=== PATIENT | male | born 1965 | race Caucasian/White ===

== ENCOUNTER 2019-10-25 19:25 | Emergency (ER) | payer OTHER ==
[2019-10-25 19:48] VITALS: BMI 20.9
[2019-10-25] MEDS ORDERED: methylPREDNISolone NA SUCC 125 MG/2 ML VIAL IVPB ONE (20:01)
[2019-10-25] MEDS ORDERED: SODIUM CHLORIDE 1,000 ML IV STA (20:01)
[2019-10-25] MEDS ORDERED: methylPREDNISolone NA SUCC 125 MG/2 ML VIAL ONE (20:13)
[2019-10-25] MEDS ORDERED: CEFTRIAXONE 2,000 MG in DEXTROSE 5%-WATER - 50 ML IVPB ONE (20:42)
[2019-10-25] MEDS ORDERED: CLINDAMYCIN 600MG PREMIX IVPB 600 MG/50 ML BAG IVPB ONE (20:44)
[2019-10-25 20:46] LABS: ALBUMIN 4.4 g/dl (3.4-5.0); BILIRUBIN,TOTAL 1.3 mg/dl (0.2-1); CALCIUM 9.1 mg/dl (8.5-10); CREATININE 0.9 mg/dl (0.55-1.3); POTASSIUM 4.3 mmol/L (3.5-5.1); TOT PROT 7.9 g/dl (6.4-8.2)
[2019-10-25 20:47] LABS: HEMATOCRIT 41.3 % (35.4-49); HEMOGLOBIN 14.7 GM/dl (11.7-16.9); MCHC 35.5 g/dl (32.0-35.9); MEAN CELL VOLUME 87.1 fl (80-96); MEAN PLT VOLUME 7.7 fl (7.5-11.1); PLATELET COUNT 263 K/MM3 (134-434); RBC 4.74 M/mm3 (4.00-5.60)
[2019-10-25] MEDS ORDERED: CLINDAMYCIN PHOSPHATE 600 MG/4 ML VIAL ONE (20:54)
[2019-10-25 21:25] VITALS: TEMP 99.8
[2019-10-25 21:59] LABS: PLATELET ESTIMATE ADEQUATE
[2019-10-25 22:01] VITALS: BP 140/100; PULSE 109
--- NOTE | 2019-10-26 00:05 | PDOC ---
Documentation entered by Carrillo Paris SCRIBE, acting as scribe for Mayra Vogel MD. Mayra Vogel MD: This documentation has been prepared by the Wellington harding Angel, SCRIBE, under my direction and personally reviewed by me in its entirety. I confirm that the documentation accurately reflects all work, treatment, procedures, and medical decision making performed by me. History of Present Illness - General Chief Complaint: Dysphagia Stated Complaint: SWALLOWING DIFFICULTY Time Seen by Provider: 10/25/19 19:51 History Source: Patient, Significant Other - History of Present Illness Initial Comments: 10/25/19 20:24 The patient is a 54 year old male with a significant past medical history of HTN who presents to the ED with throat swelling for 3 days. The patient states he was cleaning around the house on Friday when he started to feel his throat getting tight. The patient states he also began experiencing right ear pain that same day but it resolved. The patient states the throat tightness has been progressively getting worse over the last few days, now he has trouble swallowing water or any foods and states it feels like there is something stuck and he cant cough it up. The patients notes taking the patient to Urgent Care but nothing they found was remarkable. The patient started taking Losartan for high blood pressure but denies any other recent changes in medications or foods. The patient has a fever of 100.5 here in the ED. The patient states he has been working from home and has stayed home during since COVID started. The patient denies cough, abdominal pain, chest pain or any sick contacts. 10/25/19 21:11 10/25/19 21:47 Past History - Medical History Allergies/Adverse Reactions: Allergies Allergy/AdvReac Type Severity Reaction Status Date / Time No Known Allergies Allergy Verified 10/25/19 19:38 Home Medications: Ambulatory Orders Losartan Potassium [Cozaar -] 50 mg PO DAILY 10/25/19 Pseudoephedrine HCl [Suphedrine] 30 mg PO ONCE 10/25/19 COPD: No HTN: Yes Other medical history: PAROTIDITIS 2003 - Psycho-Social/Smoking History Smoking History: Never smoked - Substance Abuse Hx (Audit-C & DAST Scrn) How often the patient has a drink containing alcohol: 2-4 times / month How often the patient has six or more drinks on one occasion: Never Score: In Men: 4 or > Positive; In Women: 3 or > Positive: 2 Screen Result (Pos requires Nsg. Audit-10AR): Negative In the last yr the pt used illegal drug/Rx for NonMed reason: No Score: Yes response is considered Positive: 0 Screen Result (Positive result requires Nsg. DAST-10): Negative Review of Systems - Review of Systems Able to Perform ROS?: Yes Comments:: 10/25/19 20:24 GENERAL/CONSTITUTIONAL: +Fever of 100.5. No chills. No weakness. HEAD, EYES, EARS, NOSE AND THROAT: +Throat Tightness. No change in vision. No ear pain or discharge. No sore throat. CARDIOVASCULAR: No chest pain or shortness of breath. RESPIRATORY: No cough, wheezing, or hemoptysis. GASTROINTESTINAL: No nausea, vomiting, diarrhea or constipation. GENITOURINARY: No dysuria, frequency, or change in urination. MUSCULOSKELETAL: No joint or muscle swelling or pain. No neck or back pain. SKIN: No rash NEUROLOGIC: No headache, vertigo, loss of consciousness, or change in strength/sensation. ENDOCRINE: No increased thirst. No abnormal weight change. HEMATOLOGIC/LYMPHATIC: No anemia, easy bleeding, or history of blood clots. ALLERGIC/IMMUNOLOGIC: No hives or skin allergy. *Physical Exam - Vital Signs Last Vital Signs Temp Pulse Resp BP Pulse Ox 100.5 F H 126 H 20 149/105 H 98 10/25/19 19:38 10/25/19 19:38 10/25/19 19:38 10/25/19 19:38 10/25/19 19:38 - Physical Exam 10/25/19 21:10 GENERAL: Awake, alert, and fully oriented, in no acute distress HEAD: No signs of trauma EYES: PERRLA, EOMI, sclera anicteric, conjunctiva clear ENT: +Muffled voice. Moderate forengle erythema without exudates or masses. Uvula is midline and minimally edematous. Auricles normal inspection, hearing grossly normal, nares patent, oropharynx clear without exudates. Moist mucosa NECK: No tenderness or masses palpated, no stridor, no meningismus. Normal ROM, supple, no lymphadenopathy, JVD, or masses LUNGS: Breath sounds equal, clear to auscultation bilaterally. No wheezes, and no crackles HEART: Regular rate and rhythm, normal S1 and S2, no murmurs, rubs or gallops ABDOMEN: Soft, nontender, normoactive bowel sounds. No guarding, no rebound. No masses EXTREMITIES: Normal range of motion, no edema. No clubbing or cyanosis. No cords, erythema, or tenderness NEUROLOGICAL: Cranial nerves II through XII grossly intact. Normal speech, normal gait SKIN: Warm, Dry, normal turgor, no rashes or lesions noted. ED Treatment Course - LABORATORY CBC & Chemistry Diagram: 10/25/19 20:10 10/25/19 20:12 Medical Decision Making - Medical Decision Making 10/25/19 21:05 As noted above, 54-year-old man with hx of HTN presented with 3-day history of progressive foreign body sensation in throat while swallowing. He also had mild left ear discomfort (now resolved). No other acute symptoms. Patient was seen in urgent care center today and had strep test sent. since then, he had increase in symptoms and presented here. Exam as noted above with low-grade temperature 100.5 F orally Solu-Medrol 125 mg IV administered. Stat soft tissue CT of the neck performed: Interpretation by Dr. Ramirez of the radiologist-epiglottis is enlarged with central air/gas accumulation. There is resultant airway narrowing. also, note is made of soft tissue thickening posterior at the level of the hypopharynx. Laboratory evaluation notable for white blood cell count of 20,000. No other significant abnormality seen Rocephin 2 g IV and clindamycin 600 mg IV ordered for presumed acute epiglottitis. Because there is no otolaryngology service here, transfer center at [facility] contacted for urgent transfer. 10/25/19 21:49 Patient has been accepted by at [facility] emergency department; otolaryngology service has been contacted and will see the patient in the ED. Patient transported to [facility] ED by [facility] ambulance in stable condition Discharge - Discharge Information Problems reviewed: Yes Clinical Impression/Diagnosis: Acute epiglottitis Qualifiers: Airway obstruction: without obstruction Qualified Code(s): J05.10 - Acute epiglottitis without obstruction Condition: Guarded Disposition: TRANSFER ACUTE CARE/OTHER HOSP - Follow up/Referral - Patient Discharge Instructions - Post Discharge Activity - Transfer to Acute Care Facility Receiving Facility Name: [facility] Accepting Physician:: Dr Herrera
== END 2019-10-25 22:02 | disposition short-term general hospital (02) ==
LOC: FER 19:25
PROC: 3E03329 Introduction of Other Anti-infective into Peripheral Vein, Percutaneous Approach (ICD-10-PCS; principal; 2019-10-25)
PROC: 3E033GC Introduction of Other Therapeutic Substance into Peripheral Vein, Percutaneous Approach (ICD-10-PCS; 2019-10-25)
PROC: 3E0337Z Introduction of Electrolytic and Water Balance Substance into Peripheral Vein, Percutaneous Approach (ICD-10-PCS; 2019-10-25)
DX: J05.10 Acute epiglottitis without obstruction (principal)
CPT/HCPCS: 36415; 70490-TC; 80053; 85025; 87040; 87076; 99285-25